=== PATIENT | female | born 1995 | race Caucasian/White ===

== ENCOUNTER 2016-08-21 23:03 | Emergency (ER) | payer BC, MEDICAID ==
[~2016-08-21] VITALS: Ht 162.6 cm; Wt 87.1 kg
[~2016-08-21 23:03] MED LIST: CALC-52 PO; CHRO1TAB8 PO; FISH1CAP51 PO; NORG1TAB12 PO; ONDA4TAB7 PO
--- NOTE | 2016-08-21 23:05 | NUR ---
PROVIDER DR RIVERA IN ROOM W/ PT.
--- OUTSIDE RECORDS SUMMARY | 2016-08-21 23:07 | XMS REPORT | Continuity of Care Document ---
Author Author [facility] Organization [facility] Address Unknown Phone Unavailable Care Team Providers Care Fnp Name Role Phone JAZ ALLAN MD Primary Care Physician [phone] Insurance Providers Guarantor Shakira Dickens Address [address] [place] [address] Email DENIED/NO TO PT PORT Payer [facility] [employer] Policy Number [id number] Subscriber's Name Shakira Dickens Relationship 18 Self Effective Date 16 Expiration Date 16 Payer [facility] Other Policy Number [id number] Subscriber's Name Sahkira Dickens Relationship 18 Self Group Number [id number] Advance Directives Directive Response Recorded Date/Time Advanced Directives Type None 05/02/16 1:42pm Chief Complaint and Reason for Visit Chief Complaint Nausea,Vomiting,Diarrhea Reason for Visit Gastroenteritis Problems Active Problems Medical Problem Onset Date Status Unknown Acute Puncture wound of right 3rd finger with FB w/o damage to nail Unknown Acute Status post normal vaginal delivery Unknown Past Problems Medical Problem Onset Date Gastroenteritis Unknown Medications Current Home Medications Medication Dose Units Route Directions Days Qty Instructions Start Date Calcium Carbonate (Calcium) 500 Mg Tablet 1 Tab Oral Daily Chromium/Herbal Complex No.238 (Green Tea Caplet) 1 Each Tablet 1 Tab Oral Daily 05/02/16 Norgestimate-Ethinyl Estradiol (Sprintec 28 Day Tablet) 1 Tab Tablet 1 Tab Oral Daily 05/02/16 [place]-3 Fatty Acids/Fish Oil ([place] 3 Fish Oil Softgel) 1 Each Capsule.dr Briceño Cap Oral Daily 05/02/16 Ondansetron (Zofran Odt) 4 Mg Tab.rapdis 4 Mg Oral Q8h @ 0100/0900/1700 7 Tablet Orally disintegrating tablet 05/02/16 Past Home Medications Medication Directions Ordered Status Cephalexin 500 Mg Tablet, 1 Tab Oral Twice A Day 07/15/15 Discontinued Ondansetron (Zofran Odt) 4 Mg Tab.rapdis, 4 Mg Oral Q4-6 for Nausea &/Or Vomiting 06/11/15 Discontinued Social History Social History Problem Response Recorded Date/Time Onset Date Status Hx Substance Use No 05/02/2016 2:18pm Not Applicable Not Applicable Hx Alcohol Use Y SOCIALLY 05/02/2016 2:18pm Not Applicable Not Applicable Has the pt used tobacco in the last 12 months Yes 11/11/2015 6:30am Not Applicable Not Applicable Tobacco Usage smoke 03/24/2015 6:31am Not Applicable Not Applicable Query Response Start Date Stop Date Smoking Status Current every day smoker Hospital Discharge Instructions No hospital discharge instructions. Plan of Care Discharge Date 05/02/16 3:25pm Disposition 01 DISCHARGED HOME, SELF-CARE Condition at Discharge Stable Instructions/Education Provided DI for Viral Gastroenteritis -- Adult Prescriptions See Medication Section Referrals JAZ ALLAN MD Address: [address] [place] [address] LEE AUSTIN Address: [address] [place], [place] [id number] Additional Instructions/Education Get plenty of rest today. Use the Zofran as needed for nausea. Take small frequent sips of clear liquids to maintain hydration. If any further issues/concerns then follow up with your primary care provider. Care Plan and Goals Physician Care Plan Problem:Gastroenteritis Goal: Follow up with primary care provider Instructions: Take medications and follow care plan as discussed/written Functional Status No functional status results. Allergies, Adverse Reactions, Alerts No known allergies. Immunizations Query Response on File Recorded Date/Time DTaP Vaccine History UNKNOWN 05/02/16 2:18pm Influenza Vaccine Hx Declined 05/02/16 2:18pm Tdap Vaccine Hx In Dr Vazquez office 11/11/15 6:30am Vital Signs Acute Vital Signs Vital Response Date/Time Temperature (Fahrenheit) 98.7 deg F (96.8 - 99.1) 05/02/2016 3:25pm Temperature (Calculated Celsius) 37.72313 degrees C (36.0 - 37.3) 05/02/2016 3:25pm Pulse Rate (adult) 64 bpm (60 - 100) 05/02/2016 3:25pm Respiratory Rate 16 breaths/min (10 - 20) 05/02/2016 3:25pm O2 Sat by Pulse Oximetry 98 % (90 - 100) 05/02/2016 3:25pm Blood Pressure 113/58 mm Hg 05/02/2016 3:25pm Height (Feet) 5 feet 05/02/2016 12:45pm Height (Inches) 4.00 inches 05/02/2016 12:45pm Weight (Kilograms) 81.800 kg 05/02/2016 12:45pm Body Mass Index (BMI) 30.0 05/02/2016 12:45pm Results Laboratory Results Test Name Result Units Flags Reference Collection Date/Time Result Date/ Time Comments White Blood Count 6.3 T/MM3 4.5-11.0 05/02/2016 2:11pm 05/02/2016 2: 22pm Red Blood Count 4.99 M/MM3 4.00-5.20 05/02/2016 2:11pm 05/02/2016 2: 22pm Hemoglobin 14.8 GM/DL 12-16 05/02/2016 2:11pm 05/02/2016 2:22pm Hematocrit 43.9 % 36-46 05/02/2016 2:11pm 05/02/2016 2:22pm Mean Corpuscular Volume 88.0 UM3 80-100 05/02/2016 2:11pm 05/02/2016 2: 22pm Mean Corpuscular Hemoglobin 29.7 UUG 26-34 05/02/2016 2:11pm 2015 2:22pm Mean Corpuscular Hemoglobin Concent 33.7 GM/DL 31-37 05/02/2016 2:11pm 05/02/2016 2:22pm RDW Standard Deviation 40.3 FL 36.9-50.2 05/02/2016 2:11pm 05/02/2016 2 :22pm Platelet Count 171 T/MM3 130-400 05/02/2016 2:11pm 05/02/2016 2:22pm Mean Platelet Volume 11.0 UM3 9.4-12.4 05/02/2016 2:05/02/2016 2: 22pm Neutrophils (%) (Auto) 80.4 % H 33-66 05/02/2016 2:05/02/2016 2: 22pm Lymphocytes (%) (Auto) 12.7 % L 23-45 05/02/2016 2:05/02/2016 2: 22pm Monocytes (%) (Auto) 4.6 % 0-9.0 05/02/2016 2:05/02/2016 2:22pm Eosinophils (%) (Auto) 1.6 % 0-4 05/02/2016 2:05/02/2016 2:22pm Basophils (%) (Auto) 0.5 % 0-2 05/02/2016 2:05/02/2016 2:22pm Immature Granulocyte % (Auto) 0.2 % 0.0-0.5 05/02/2016 2:2015 2:22pm Absolute Neutrophils (auto) 5.1 T/MM3 1.8-7.7 05/02/2016 2:2015 2:22pm Absolute Lymphocytes (auto) 0.8 T/MM3 L 1-4.8 05/02/2016 2:2015 2:22pm Absolute Monocytes (auto) 0.3 T/MM3 0-0.8 05/02/2016 2:05/02/2016 2:22pm Absolute Eosinophils (auto) 0.1 T/MM3 0-0.5 05/02/2016 2:2015 2:22pm Absolute Basophils (auto) 0.0 T/MM3 0-0.2 05/02/2016 2:05/02/2016 2:22pm Absolute Immature Granulocyte (auto 0.01 T/MM3 0.00-0.03 05/02/2016 2: 05/02/2016 2:22pm Icterus Index < 2 0-7 05/02/2016 2:05/02/2016 2:32pm Chemistry Specimen Hemolysis < 15 0-25 05/02/2016 2:05/02/2016 2 :32pm 0-25: Specimen Exhibited No Hemolysis. Turbidity < 20 0-20 05/02/2016 2:05/02/2016 2:32pm Sodium Level 142 MEQ/L 134-144 05/02/2016 2:05/02/2016 2:32pm Potassium Level 3.9 MEQ/L 3.6-5 05/02/2016 2:05/02/2016 2:32pm Chloride Level 106 MEQ/L 98-107 05/02/2016 2:05/02/2016 2:32pm Carbon Dioxide Level 23 MEQ/L 22-30 05/02/2016 2:05/02/2016 2: 32pm Anion Gap 13 MEQ/L 5-15 05/02/2016 2:05/02/2016 2:32pm Blood Urea Nitrogen 10.0 MG/DL 7-17 05/02/2016 2:05/02/2016 2: 32pm Creatinine 0.6 MG/DL L 0.7-1.2 05/02/2016 2:05/02/2016 2:32pm BUN/Creatinine Ratio 17 RATIO 6-26 05/02/2016 2:05/02/2016 2:32pm Glomerular Filtration Rate Calc 127 05/02/2016 2:05/02/2016 2: 32pm Glucose Level 83 MG/DL 65-110 05/02/2016 2:05/02/2016 2:32pm Calculated Osmolality 271 MOSM/KG 261-280 05/02/2016 2:05/02/2016 2:32pm Calcium Level 9.2 MG/DL 8.4-10.2 05/02/2016 2:05/02/2016 2:32pm Total Bilirubin 0.90 MG/DL 0.20-1.30 05/02/2016 2:05/02/2016 2: 32pm Alkaline Phosphatase 66 U/L 38-126 05/02/2016 2:05/02/2016 2:32pm Total Protein 6.9 G/DL 6.3-8.2 05/02/2016 2:05/02/2016 2:32pm Albumin 4.2 G/DL 3.5-5.0 05/02/2016 2:05/02/2016 2:32pm Globulin 2.7 G/DL 2.4-3.6 05/02/2016 2:05/02/2016 2:32pm Albumin/Globulin Ratio 1.6 RATIO 1.1-2.2 05/02/2016 2:11pm 05/02/2016 2 :32pm Aspartate Amino Transf (AST/SGOT) 22 U/L 14-36 05/02/2016 2:11pm 2015 2:32pm Alanine Aminotransferase (ALT/SGPT) 38 U/L 9-52 05/02/2016 2:11pm 05/02 2:32pm Procedures No known history of procedures. Encounters Encounter Location Arrival/Admit Date Discharge/Depart Date Attending Provider Departed Emergency Room [facility] 05/02/16 12:21pm 05/02/16 3: 25pm SANCHEZ MAIER MD Recent Diagnosis
[2016-08-21 23:28] VITALS: Ht 162.6 cm; Wt 87.1 kg
[2016-08-21] MEDS ORDERED: NO CURRENT HOME MEDS (23:36)
--- NOTE | 2016-08-21 23:41 | ERPDOC ---
Departure Disposition Decision Date: Aug 22, 2016 Disposition Decision Time: 00:22 Disposition: 01 DISCHARGED HOME, SELF-CARE Impression Impression Impression: Primary Impression: Viral gastritis Severity: Moderate Condition: Improved Seen By: Physician only Referrals: JAZ ALLAN MD (PCP) LEE AUSTIN (Family) Problems/Meds/Labs Reviewed?: Yes Medications reviewed and manag: Yes Follow up care ordered?: Yes Mental Status: Alert HPI - Abdominal Pain General Chief Complaint: Nausea,Vomiting,Diarrhea Stated Complaint: VOMITING/DIARRHEA Time Seen by Provider: 23:05 Source: patient History/Exam Limitations: no limitations HPI - Abdominal Pain Initial Comments Vomiting all day, every thirty minutes. No medication to take at home... Just tried to tuff it out until tonight. Occurred At: home Onset: Rapid Duration: 12-24 hrs Quality: aching Location: epigastric Radiation: no radiation Associated Symptoms: nausea/vomiting, DENIES: back pain, chest pain, diaphoresis, fatigue, fever/chills, headache, heartburn, rash, shortness of breath, swelling/mass in abdomen, syncope, weakness Hx of Similar Symptoms: Yes Allergies: Coded Allergies: No Known Allergies (Unverified , 08/21/16) Past History Past Medical History Pt denies signifigant PMH Female: , para Surgical History Denies Surgeries Family History Family PMH: FOUND: other Social History Smoking Status: Never smoker Does patient use chewing tobac: No Second Hand Exposure: No Substance Use Type: does not use Alcohol Intake: none Sexuality: male partner Review of Systems Constitutional Constitutional: DENIES: appetite decrease, appetite increase, chills, dizziness , fever, weakness ENMT Ears: DENIES: pain Hearing: DENIES: hearing loss, tinnitus Balance: DENIES: vertigo Mouth/Throat: DENIES: change in swallowing, change in voice, hoarsness, painful swallowing, sore throat Cardiovascular Cardiac: DENIES: chest pain, dyspnea on exertion Rhythm/Rate: DENIES: irregular beat, palpitations, tachycardia Vascular: DENIES: pedal edema Pulmonary Respiratory: DENIES: cough, dyspnea, pleuritic chest pain GI Upper Abdomen: nausea, pain (stomach muscles sore from vomiting), vomiting, DENIES: dysphagia, heartburn/indigestion Lower Abdomen: DENIES: blood in stool, constipation, diarrhea, pain General: DENIES: burning, dysuria, frequency, pain, urgency Musculoskeletal General: DENIES: cramps, joint pain, joint swelling, pain, weakness Integumentary Skin: DENIES: rash, sores Neurological General: DENIES: headache, numbness, tingling, vertigo, weakness Physical Exam General General Nourishment: well nourished, well developed, appears stated age, no acute distress General Body Habitus: well groomed Vitals and Pain First Documented Vital Signs Date Time Temp Pulse Resp B/P Pulse Ox O2 Delivery O2 Flow Rate FiO2 08/21/16 23:28 98.2 73 16 131/69 96 Room Air Weight: Kilograms: Height (feet): 5 Height (inches): 4.00 Triage Pain Scale: RN VS reviewed by Provider: Yes Normal Exams: Head: Normocephalic w/o trauma Eyes: Pupils are PERRLA w/ EOMI, No scleral icterus, irritation, or foreign bodies noted ENMT: No facial trauma, nasal exudates, pharyngeal erythema, or exudates are noted Neck: Full range of motion, without adenopathy, JVD, bruits or thyromegaly Chest/Resp: Clear all connell, with good airflow, and symmetry bilaterally CV: Regular rate and rhythm, without murmur or gallop, Pulses 2+ all extremities, capillary refill, <2 seconds all ext., no pedal edema noted Lymphatic: No lymphadenopathy, or lymphedema noted Musculoskeletal: No tenderness, or deformity noted, good range of motion, all extremities Integumentary: No rashes, hives, or bruising noted, hair and nails, without abnormality Neurologic: Patient is alert, and oriented, cranial nerves, motor/sensory/ cerebellar, exams w/o gross deficits, to observation Psychiatric: Patient exhibits, appropriate attention, emotion and affect Abdomen (brief) Abdominal Brief: FOUND: soft, NOT FOUND: bowel normo active x4 (decreased, but positive throughout), distended, hepatosplenomegaly, pulsatile mass, tender Progress Results/Orders Orders Procedure Category Date Status Time Iv Lock (Ed Only) EDM 08/21/16 Transmitted 23:32 Cbc W/Auto LAB 08/21/16 Complete Diff-Reflex Manual Cmp - Comprehensive LAB 08/21/16 Complete Metabolic Ondansetron Inj PHA 08/21/16 Complete (Zofran) 23:45 Normal Saline (Normal PHA 08/21/16 Complete Saline Iv) 23:45 Ondansetron Odt PHA 08/22/16 Complete (Prepack) (Zofran Odt 00:30 Lab Results Laboratory Tests Test 08/21/16 23:56 White Blood Count 12.3T/MM3 Red Blood Count 5.69M/MM3 Hemoglobin 16.8GM/DL Hematocrit 49.9% Mean Corpuscular Volume 87.7UM3 Mean Corpuscular Hemoglobin 29.5UUG Mean Corpuscular Hemoglobin Concent 33.7GM/DL RDW Standard Deviation 40.9FL Platelet Count 203T/MM3 Mean Platelet Volume 10.9UM3 Immature Granulocyte % (Auto) 0.2% Neutrophils (%) (Auto) 80.3% Lymphocytes (%) (Auto) 9.8% Monocytes (%) (Auto) 6.8% Eosinophils (%) (Auto) 2.4% Basophils (%) (Auto) 0.5% Absolute Immature Granulocyte (auto 0.02T/MM3 Absolute Neutrophils (auto) 9.9T/MM3 Absolute Lymphocytes (auto) 1.2T/MM3 Absolute Monocytes (auto) 0.8T/MM3 Absolute Eosinophils (auto) 0.3T/MM3 Absolute Basophils (auto) 0.1T/MM3 Turbidity < 20 Sodium Level 143MEQ/L Potassium Level 4.0MEQ/L Chloride Level 109MEQ/L Carbon Dioxide Level 23MEQ/L Anion Gap 11MEQ/L Blood Urea Nitrogen 12.0MG/DL Creatinine 0.8MG/DL Glomerular Filtration Rate Calc 91 BUN/Creatinine Ratio 15RATIO Glucose Level 105MG/DL Calculated Osmolality 275MOSM/KG Calcium Level 10.0MG/DL Total Bilirubin 1.20MG/DL Icterus Index < 2 Aspartate Amino Transf (AST/SGOT) 22U/L Alanine Aminotransferase (ALT/SGPT) 31U/L Alkaline Phosphatase 84U/L Total Protein 7.9G/DL Albumin 4.9G/DL Globulin 3.0G/DL Albumin/Globulin Ratio 1.6RATIO Chemistry Specimen Hemolysis < 15 Medications Current ED Medications Ondansetron HCl 4 mg 4 mg O ONCE IV Last administered on 08/21/16t 23:57; Start 08/21/16 at 23:45; Stop 08/21/16 at 23:46; Status DC Sodium Chloride (Normal Saline IV) 1,000 ml @ 0 mls/hr Q0M ONCE IV Last administered on 08/21/16 23:57; Start 08/21/16 at 23:45; Stop 08/21/16 at 23:46 ; Status DC Ondansetron HCl (ZOFRAN ODT (PrePack)) 1 pack O ONCE SENT HOME Last administered on 08/22/16 01:20; Start 08/22/16 at 00:30; Stop 08/22/16 at 00:31 ; Status DC Progress Progress Patient given 1 L normal saline IV fluid bolus and Zofran 4 mg IV - CBC CMP normal Patient was diagnosed with viral gastroenteritis, dismissed by paper, due to computer downtime KENDRA RIVERA MD Aug 21, 2016 23:40
[2016-08-21] MEDS ORDERED: ONDANSETRON 4mg/2ml INJECTION IV ONE (23:45)
[2016-08-21] MEDS ORDERED: NORMAL SALINE 1,000 ML IV ONE (23:45)
--- NOTE | 2016-08-22 00:08 | NUR ---
COMFORT PT'S BED HEAD ADJUSTED AND GIVEN ICE CHIPS ON REQUEST.
[2016-08-22 00:10] LABS: BASOPHILS # (AUTO) 0.1 T/MM3 (0-0.2); BASOPHILS % (AUTO) 0.5 % (0-2); EOSINOPHILS # (AUTO) 0.3 T/MM3 (0-0.5); EOSINOPHILS % (AUTO) 2.4 % (0-4); HCT - HEMATOCRIT 49.9 % (36-46); HGB - HEMOGLOBIN 16.8 GM/DL (12-16); IMMATURE GRANULOCYTE # (AUTO) 0.02 T/MM3 (0.00-0.03); IMMATURE GRANULOCYTE % (AUTO) 0.2 % (0.0-0.5); LYMPHOCYTES # (AUTO) 1.2 T/MM3 (1-4.8); LYMPHOCYTES % (AUTO) 9.8 % (23-45); MEAN CORPUSCULAR HGB 29.5 UUG (26-34); MEAN CORPUSCULAR HGB CONC(MCHC 33.7 GM/DL (31-37); MEAN CORPUSCULAR VOLUME 87.7 UM3 (80-100); MEAN PLATELET VOLUME 10.9 UM3 (9.4-12.4); MONOCYTES # (AUTO) 0.8 T/MM3 (0-0.8); MONOCYTES % (AUTO) 6.8 % (0-9.0); NEUTROPHILS #(AUTO)-ABSOLUTE 9.9 T/MM3 (1.8-7.7); NEUTROPHILS % (AUTO) 80.3 % (33-66); RED BLOOD COUNT 5.69 M/MM3 (4.00-5.20); WBC - WHITE BLOOD COUNT 12.3 T/MM3 (4.5-11.0)
[2016-08-22 00:18] LABS: ALBUMIN 4.9 G/DL (3.5-5.0); ALBUMIN/GLOBULIN RATIO 1.6 RATIO (1.1-2.2); ALKALINE PHOSPHATASE 84 U/L (38-126); ALT (SGPT) 31 U/L (9-52); ANION GAP 11 MEQ/L (5-15); AST (SGOT) 22 U/L (14-36); BUN/CREATININE RATIO 15 RATIO (6-26); CHLORIDE 109 MEQ/L (98-107); CO2 - CARBON DIOXIDE 23 MEQ/L (22-30); CREATININE 0.8 MG/DL (0.7-1.2); GLOMERULAR FILTRATION RATE 91; GLUCOSE 105 MG/DL (65-110); SODIUM 143 MEQ/L (134-144); TOTAL PROTEIN 7.9 G/DL (6.3-8.2)
[2016-08-22] MEDS ORDERED: ONDANSETRON ODT 4mg #3 (PrePack) SENT HOME ONE (00:30)
--- NOTE | 2016-08-22 01:20 | NUR ---
PO MED TAKE HOME PREPACK ZOFRAN ODT GIVEN TO PT CHARTED.
[2016-08-22 01:23] VITALS: BP 115/76; PULSE 78; RESP 18; TEMP 98.2; O2SAT 96
--- NOTE | 2016-08-22 01:23 | NUR ---
DISCHARGE PT [id number] DISCHARGE INSTRUCTIONS FOR CONT CARE OF GASTROENTERITIS W/ RX X1 OF ZOFRAN. PT VERBALIZED UNDERSTANDING AND SIGNED FORM, PT LEFT ER AMBULATORY W/O ASSIST, ALERT, VS CHARTED PAIN RELIEVED 0/10 AND NAUSEA 2/10 AND NO ACUTE DISTRESS.
--- NOTE | 2016-08-23 16:56 | NUR ---
Call Call received from Pt, states cannot find Prescription and has run out of PrePack. Discussed with Dr. Rich, he is not comfortable with giving Prescription without seeing Pt. Relayed to Pt who sounds remorseful and states will try to tough it out, does not want to come in.
== END 2016-08-22 01:23 | disposition home or self-care (01) ==
LOC: ED 23:03
DX: A08.4 Viral intestinal infection, unspecified (principal)
CPT/HCPCS: 80053; 85025; 96361; 96374; 99284; J2405; J7030